=== PATIENT | male | born 1960 | race Caucasian/White ===

== ENCOUNTER 2021-02-23 14:11 | Inpatient (IN) | payer MEDICARE ==
[2021-02-23] MEDS ORDERED: Ibuprofen 600 MG Tab PO PRN (18:10)
[2021-02-23] MEDS: Zolpidem 5 MG Tab PO PRN (19:50)
[2021-02-23] MEDS: LORazepam 1 MG Tab PO PRN (20:56)
[2021-02-24] MEDS: Zolpidem 5 MG Tab PO PRN (00:33)
[2021-02-24] MEDS ORDERED: Haloperidol Lactate 5 MG/ML SDV IM STA (01:17)
[2021-02-24] MEDS ORDERED: Haloperidol Lactate 5 MG/ML SDV ONE (01:57)
[2021-02-24] MEDS: Acetaminophen/oxyCODONE 325-5 MG Tab PO PRN ×2 (03:00→16:42)
[2021-02-24] MEDS: Bacitracin Oint 1 GM U/D Packet TOP SCH (16:42)
[2021-02-25] MEDS: Acetaminophen/oxyCODONE 325-5 MG Tab PO PRN ×3 (01:20→20:39)
[2021-02-25] MEDS ORDERED: REMDESIVIR 200 MG in Sodium Chloride 0.9% 250 ML IV SCH (11:00)
[2021-02-25] MEDS: Enoxaparin 30 MG/0.3 ML Syringe SUBCUT SCH ×2 (12:37→23:24)
[2021-02-25] MEDS: Bacitracin Oint 1 GM U/D Packet TOP SCH (12:38)
[2021-02-25] MEDS: Dexamethasone 4 MG/ML SDV IVPUSH SCH (12:38)
[2021-02-25] MEDS ORDERED: BACITRACIN ZINC TOP SCH (13:15)
[2021-02-25] MEDS: Zolpidem 5 MG Tab PO PRN (20:37)
[2021-02-26] MEDS: Acetaminophen/oxyCODONE 325-5 MG Tab PO PRN ×4 (02:22→22:44)
[2021-02-26] MEDS: Dexamethasone 4 MG/ML SDV IVPUSH SCH (09:19)
[2021-02-26] MEDS: Enoxaparin 30 MG/0.3 ML Syringe SUBCUT SCH ×2 (09:19→22:43)
[2021-02-26] MEDS: REMDESIVIR 100 MG in Sodium Chloride 0.9% 100 ML IV SCH (09:20)
[2021-02-26] MEDS: Zolpidem 5 MG Tab PO PRN (22:44)
[2021-02-27] MEDS: Acetaminophen/oxyCODONE 325-5 MG Tab PO PRN ×4 (05:14→23:11)
[2021-02-27] MEDS: Dexamethasone 4 MG/ML SDV IVPUSH SCH (07:47)
[2021-02-27] MEDS: REMDESIVIR 100 MG in Sodium Chloride 0.9% 100 ML IV SCH (08:37)
[2021-02-27] MEDS: Enoxaparin 30 MG/0.3 ML Syringe SUBCUT SCH ×2 (09:43→21:21)
[2021-02-27] MEDS: Sodium Chloride 0.9% 10 ML Syringe FLUSH PRN ×2 (09:45→20:53)
[2021-02-27] MEDS ORDERED: Bisacodyl 10 MG Supp ONE (12:48)
[2021-02-27] MEDS ORDERED: Docusate Sodium 100 MG Cap ONE (12:50)
[2021-02-27] MEDS ORDERED: Bisacodyl 10 MG Supp RECTAL ONE (12:54)
[2021-02-27] MEDS ORDERED: Melatonin 3 MG Tab ONE (20:46)
[2021-02-27] MEDS: Melatonin 3 MG Tab PO PRN (20:53)
[2021-02-27] MEDS: Zolpidem 5 MG Tab PO PRN (23:12)
[2021-02-28] MEDS: Acetaminophen/oxyCODONE 325-5 MG Tab PO PRN ×3 (06:32→19:01)
[2021-02-28] MEDS: REMDESIVIR 100 MG in Sodium Chloride 0.9% 100 ML IV SCH (08:30)
[2021-02-28] MEDS: Docusate Sodium 100 MG Cap PO SCH (08:30)
[2021-02-28] MEDS: Dexamethasone 4 MG/ML SDV IVPUSH SCH (08:39)
[2021-02-28] MEDS: Enoxaparin 30 MG/0.3 ML Syringe SUBCUT SCH ×2 (09:47→22:26)
[2021-02-28] MEDS: LORazepam 1 MG Tab PO PRN (13:22)
[2021-02-28] MEDS ORDERED: diphenhydrAMINE 50 MG Cap PO PRN (20:00)
[2021-02-28] MEDS ORDERED: Haloperidol 1 MG Tab ONE ×2 (20:37→22:15)
[2021-02-28] MEDS ORDERED: Haloperidol 1 MG Tab PO SCH (22:30)
[2021-03-01] MEDS: Zolpidem 5 MG Tab PO PRN
[2021-03-01] MEDS: Acetaminophen/oxyCODONE 325-5 MG Tab PO PRN ×5 (01:08→23:10)
[2021-03-01] MEDS ORDERED: traZODone 50 MG Tab PO ONE (06:43)
[2021-03-01] MEDS: Docusate Sodium 100 MG Cap PO SCH (08:50)
[2021-03-01] MEDS: Dexamethasone 4 MG/ML SDV IVPUSH SCH (08:57)
[2021-03-01] MEDS: REMDESIVIR 100 MG in Sodium Chloride 0.9% 100 ML IV SCH (08:57)
[2021-03-01] MEDS: Enoxaparin 30 MG/0.3 ML Syringe SUBCUT SCH ×2 (10:06→22:59)
[2021-03-01] MEDS ORDERED: Haloperidol 1 MG Tab PO PRN (18:12)
[2021-03-01] MEDS ORDERED: Haloperidol 1 MG Tab PO SCH (20:00)
[2021-03-01] MEDS: Melatonin 3 MG Tab PO PRN (23:00)
[2021-03-01] MEDS: traZODone 100 MG Tab PO PRN (23:00)
[2021-03-02] MEDS: Acetaminophen/oxyCODONE 325-5 MG Tab PO PRN ×5 (04:30→22:02)
[2021-03-02] MEDS: Dexamethasone 4 MG/ML SDV IVPUSH SCH (07:53)
[2021-03-02] MEDS: Docusate Sodium 100 MG Cap PO SCH (08:21)
[2021-03-02] MEDS: Enoxaparin 30 MG/0.3 ML Syringe SUBCUT SCH ×2 (10:53→22:00)
[2021-03-02] MEDS: traZODone 100 MG Tab PO PRN (22:01)
[2021-03-02] MEDS: Melatonin 3 MG Tab PO PRN (22:02)
[2021-03-03] MEDS: Acetaminophen/oxyCODONE 325-5 MG Tab PO PRN ×3 (04:01→22:17)
[2021-03-03] MEDS: Docusate Sodium 100 MG Cap PO SCH (09:21)
[2021-03-03] MEDS: Dexamethasone 4 MG Tab PO SCH (09:24)
[2021-03-03] MEDS: Enoxaparin 30 MG/0.3 ML Syringe SUBCUT SCH ×2 (10:45→22:16)
[2021-03-03] MEDS: Dexamethasone 4 MG/ML SDV IVPUSH SCH (10:45)
[2021-03-03] MEDS: LORazepam 1 MG Tab PO PRN (18:30)
[2021-03-03] MEDS: Melatonin 3 MG Tab PO PRN (22:18)
[2021-03-03] MEDS: Sodium Chloride 0.9% 10 ML Syringe FLUSH PRN (22:19)
[2021-03-03] MEDS: traZODone 100 MG Tab PO PRN (22:19)
[2021-03-04] MEDS: Acetaminophen/oxyCODONE 325-5 MG Tab PO PRN ×4 (02:20→22:05)
[2021-03-04] MEDS: Dexamethasone 4 MG Tab PO SCH (09:44)
[2021-03-04] MEDS: Docusate Sodium 100 MG Cap PO SCH (09:45)
[2021-03-04] MEDS: Enoxaparin 30 MG/0.3 ML Syringe SUBCUT SCH ×2 (11:17→22:04)
[2021-03-04] MEDS: LORazepam 1 MG Tab PO PRN ×2 (15:15→22:04)
[2021-03-04] MEDS: Melatonin 3 MG Tab PO PRN (22:05)
[2021-03-05] MEDS: Docusate Sodium 100 MG Cap PO SCH (08:03)
[2021-03-05] MEDS: Dexamethasone 4 MG Tab PO SCH (08:03)
[2021-03-05] MEDS: Acetaminophen/oxyCODONE 325-5 MG Tab PO PRN ×2 (08:07→13:39)
[2021-03-05] MEDS: Enoxaparin 30 MG/0.3 ML Syringe SUBCUT SCH (10:34)
== END 2021-03-05 12:55 | disposition swing bed (61) | DRG 922 ==
LOC: LB.ED 14:11 → UNDOADMIN 16:35 → LB.MS 16:35 → UNDODISIN 03-05 12:55
PROVIDERS: ADMIT Nurse Practitioner; ATTEND Nurse Practitioner
PROC: 8E0ZXY6 Isolation (ICD-10-PCS; principal; 2021-02-25)
PROC: XW033E5 Introduction of Remdesivir Anti-infective into Peripheral Vein, Percutaneous Approach, New Technology Group 5 (ICD-10-PCS; 2021-02-25)
PROC: 3E0DX3Z Introduction of Anti-inflammatory into Mouth and Pharynx, External Approach (ICD-10-PCS; 2021-03-03)
DX: T33.522A Superficial frostbite of left hand, initial encounter (principal); T33.521A Superficial frostbite of right hand, initial encounter; T69.8XXA Other specified effects of reduced temperature, initial encounter; T34.532A Frostbite with tissue necrosis of left finger(s), initial encounter; U07.1 COVID-19; Z20.822 Contact with and (suspected) exposure to COVID-19; T33.72XA Superficial frostbite of left knee and lower leg, initial encounter; T33.71XA Superficial frostbite of right knee and lower leg, initial encounter; T34.531A Frostbite with tissue necrosis of right finger(s), initial encounter; R29.810 Facial weakness; R41.3 Other amnesia; Z87.820 Personal history of traumatic brain injury; X31.XXXA Exposure to excessive natural cold, initial encounter
CPT/HCPCS: 36415; 80048; 85025; 99284; U0002; 80076; 96125-GN; 97163-GP; 97597-GP; 97598-GP; 99221; 99232; 99233; A9270-GY; J1100; J1630; J1650; J7050; J8540

== ENCOUNTER 2021-03-05 12:56 | Inpatient (IN) | payer MEDICARE ==
[2021-03-05] MEDS ORDERED: Tuberculin, PPD 5 Units/0.1 ML 1 ML MDV IDERM ONE (15:19)
[2021-03-05] MEDS: Acetaminophen/oxyCODONE 325-5 MG Tab PO PRN ×2 (17:15→21:29)
[2021-03-05] MEDS: traZODone 100 MG Tab PO SCH (20:25)
[2021-03-06] MEDS: Acetaminophen/oxyCODONE 325-5 MG Tab PO PRN ×5 (01:40→20:57)
[2021-03-06] MEDS: Docusate Sodium 100 MG Cap PO SCH (08:44)
[2021-03-06] MEDS: Lisinopril 10 MG Tab PO SCH (10:08)
[2021-03-06] MEDS: traZODone 100 MG Tab PO SCH (20:55)
[2021-03-07] MEDS: Docusate Sodium 100 MG Cap PO SCH (07:12)
[2021-03-07] MEDS: Acetaminophen/oxyCODONE 325-5 MG Tab PO PRN ×2 (07:15→17:07)
[2021-03-07] MEDS: Lisinopril 10 MG Tab PO SCH (08:35)
[2021-03-07] MEDS: traZODone 100 MG Tab PO SCH (19:31)
[2021-03-08] MEDS: Docusate Sodium 100 MG Cap PO SCH (08:30)
[2021-03-08] MEDS: Lisinopril 10 MG Tab PO SCH (08:30)
[2021-03-08] MEDS ORDERED: Lisinopril 10 MG Tab ONE (10:27)
[2021-03-08] MEDS ORDERED: Lisinopril 10 MG Tab PO ONE (10:27)
[2021-03-08] MEDS: Acetaminophen/oxyCODONE 325-5 MG Tab PO PRN ×3 (12:30→20:47)
[2021-03-08] MEDS: traZODone 100 MG Tab PO SCH (20:47)
[2021-03-09] MEDS: Docusate Sodium 100 MG Cap PO SCH (07:06)
[2021-03-09] MEDS: Lisinopril 20 MG Tab PO SCH (07:06)
[2021-03-09] MEDS: Acetaminophen/oxyCODONE 325-5 MG Tab PO PRN ×3 (07:07→23:58)
[2021-03-09] MEDS: traZODone 100 MG Tab PO SCH (19:29)
[2021-03-10] MEDS: Lisinopril 20 MG Tab PO SCH (08:03)
[2021-03-10] MEDS: Docusate Sodium 100 MG Cap PO SCH (08:03)
[2021-03-10] MEDS: Acetaminophen/oxyCODONE 325-5 MG Tab PO PRN ×2 (09:01→19:22)
[2021-03-10] MEDS: traZODone 100 MG Tab PO SCH (19:22)
[2021-03-11] MEDS: Lisinopril 20 MG Tab PO SCH (08:24)
[2021-03-11] MEDS: Docusate Sodium 100 MG Cap PO SCH (08:24)
[2021-03-11] MEDS: Acetaminophen/oxyCODONE 325-5 MG Tab PO PRN ×2 (13:48→21:50)
[2021-03-11] MEDS: traZODone 100 MG Tab PO SCH (21:50)
[2021-03-12] MEDS: Lisinopril 20 MG Tab PO SCH (07:55)
[2021-03-12] MEDS: Docusate Sodium 100 MG Cap PO SCH (07:56)
[2021-03-12] MEDS: amLODIPine 5 MG Tab PO SCH (08:00)
[2021-03-12] MEDS ORDERED: amLODIPine 10 MG Tab ONE (08:17)
[2021-03-12] MEDS: traZODone 100 MG Tab PO SCH (20:55)
[2021-03-12] MEDS: Acetaminophen/oxyCODONE 325-5 MG Tab PO PRN (21:54)
[2021-03-13] MEDS: amLODIPine 5 MG Tab PO SCH (06:33)
[2021-03-13] MEDS: Lisinopril 20 MG Tab PO SCH (06:34)
[2021-03-13] MEDS: Acetaminophen/oxyCODONE 325-5 MG Tab PO PRN (06:34)
== END 2021-03-13 06:20 | DRG 950 ==
LOC: LB.MS 13:00
PROVIDERS: ADMIT Physician Assistant; ATTEND Physician Assistant
DX: T33.522D Superficial frostbite of left hand, subsequent encounter (principal); T33.521D Superficial frostbite of right hand, subsequent encounter; I10 Essential (primary) hypertension; Z20.822 Contact with and (suspected) exposure to COVID-19; Z79.899 Other long term (current) drug therapy; Z87.820 Personal history of traumatic brain injury
CPT/HCPCS: 36415; 80048; 85025; 86580; 87070; 87077; 87186; 87205; 93005; 97597-GP; A9270-GY

== ENCOUNTER 2021-03-13 17:45 | Inpatient (IN) | payer MEDICARE ==
[2021-03-13] MEDS: Cephalexin 500 MG Cap PO SCH (21:27)
[2021-03-13] MEDS: traZODone 100 MG Tab PO SCH (21:27)
[2021-03-13] MEDS: Melatonin 3 MG Tab PO SCH (21:27)
[2021-03-13] MEDS: Acetaminophen/oxyCODONE 325-5 MG Tab PO PRN (21:27)
[2021-03-14] MEDS: Acetaminophen/oxyCODONE 325-5 MG Tab PO PRN ×3 (04:26→21:27)
[2021-03-14] MEDS: Docusate Sodium 100 MG Cap PO SCH (08:37)
[2021-03-14] MEDS: amLODIPine 10 MG Tab PO SCH (08:38)
[2021-03-14] MEDS: Lisinopril 20 MG Tab PO SCH (08:38)
[2021-03-14] MEDS: Cephalexin 500 MG Cap PO SCH ×4 (08:38→21:26)
[2021-03-14] MEDS ORDERED: Bisacodyl 10 MG Supp RECTAL ONE (11:43)
[2021-03-14] MEDS ORDERED: Sodium Phosphate,Monobasic/Sodium Phosphate,Dibasic Enema 133 ML Bottle RECTAL ONE (16:02)
[2021-03-14] MEDS: traZODone 100 MG Tab PO SCH (21:26)
[2021-03-14] MEDS: Melatonin 3 MG Tab PO SCH (21:26)
[2021-03-15] MEDS: Docusate Sodium 100 MG Cap PO SCH (07:23)
[2021-03-15] MEDS: Cephalexin 500 MG Cap PO SCH ×4 (07:23→21:03)
[2021-03-15] MEDS: Acetaminophen/oxyCODONE 325-5 MG Tab PO PRN ×3 (07:46→21:02)
[2021-03-15] MEDS: amLODIPine 10 MG Tab PO SCH (08:12)
[2021-03-15] MEDS: Lisinopril 20 MG Tab PO SCH (08:13)
[2021-03-15] MEDS: Melatonin 3 MG Tab PO SCH (21:02)
[2021-03-15] MEDS: traZODone 100 MG Tab PO SCH (21:03)
[2021-03-16] MEDS: Docusate Sodium 100 MG Cap PO SCH (09:25)
[2021-03-16] MEDS: amLODIPine 10 MG Tab PO SCH (09:25)
[2021-03-16] MEDS: Lisinopril 20 MG Tab PO SCH (09:26)
[2021-03-16] MEDS: Cephalexin 500 MG Cap PO SCH ×4 (09:26→19:59)
[2021-03-16] MEDS: Acetaminophen/oxyCODONE 325-5 MG Tab PO PRN (16:26)
[2021-03-16] MEDS ORDERED: Cephalexin 500 MG Cap ONE (16:26)
[2021-03-16] MEDS: Melatonin 3 MG Tab PO SCH (19:59)
[2021-03-16] MEDS: traZODone 100 MG Tab PO SCH (19:59)
[2021-03-17] MEDS: Acetaminophen/oxyCODONE 325-5 MG Tab PO PRN ×2 (07:45→19:40)
[2021-03-17] MEDS: Docusate Sodium 100 MG Cap PO SCH (07:45)
[2021-03-17] MEDS: Cephalexin 500 MG Cap PO SCH ×2 (07:45→12:00)
[2021-03-17] MEDS: amLODIPine 10 MG Tab PO SCH (07:48)
[2021-03-17] MEDS: Lisinopril 20 MG Tab PO SCH (07:48)
[2021-03-17] MEDS: Melatonin 3 MG Tab PO SCH (19:39)
[2021-03-17] MEDS: Ciprofloxacin 500 MG Tab PO SCH (19:40)
[2021-03-17] MEDS: traZODone 100 MG Tab PO SCH (19:40)
[2021-03-18] MEDS ORDERED: Lisinopril 20 MG Tab ONE (07:27)
[2021-03-18] MEDS: Ciprofloxacin 500 MG Tab PO SCH ×2 (08:04→19:49)
[2021-03-18] MEDS: Docusate Sodium 100 MG Cap PO SCH (08:04)
[2021-03-18] MEDS: amLODIPine 10 MG Tab PO SCH (08:07)
[2021-03-18] MEDS: Acetaminophen/oxyCODONE 325-5 MG Tab PO PRN ×2 (12:00→20:05)
[2021-03-18] MEDS: Melatonin 3 MG Tab PO SCH (19:49)
[2021-03-18] MEDS: traZODone 100 MG Tab PO SCH (19:49)
[2021-03-19] MEDS ORDERED: Lisinopril 20 MG Tab ONE (08:00)
[2021-03-19] MEDS: Ciprofloxacin 500 MG Tab PO SCH ×2 (08:02→19:22)
[2021-03-19] MEDS: amLODIPine 10 MG Tab PO SCH (08:02)
[2021-03-19] MEDS: Docusate Sodium 100 MG Cap PO SCH (08:03)
[2021-03-19] MEDS: Acetaminophen/oxyCODONE 325-5 MG Tab PO PRN ×3 (08:05→20:38)
[2021-03-19] MEDS: Melatonin 3 MG Tab PO SCH (19:22)
[2021-03-19] MEDS: traZODone 100 MG Tab PO SCH (19:22)
[2021-03-20] MEDS ORDERED: Lisinopril 20 MG Tab ONE (07:10)
[2021-03-20] MEDS: Docusate Sodium 100 MG Cap PO SCH (07:11)
[2021-03-20] MEDS: Ciprofloxacin 500 MG Tab PO SCH ×2 (07:11→19:47)
[2021-03-20] MEDS: amLODIPine 10 MG Tab PO SCH (07:13)
[2021-03-20] MEDS: Acetaminophen/oxyCODONE 325-5 MG Tab PO PRN ×2 (07:15→19:46)
[2021-03-20] MEDS: Melatonin 3 MG Tab PO SCH (19:47)
[2021-03-20] MEDS: traZODone 100 MG Tab PO SCH (19:47)
[2021-03-21] MEDS ORDERED: Lisinopril 20 MG Tab ONE (07:56)
[2021-03-21] MEDS: amLODIPine 10 MG Tab PO SCH (08:01)
[2021-03-21] MEDS: Ciprofloxacin 500 MG Tab PO SCH ×2 (08:01→20:37)
[2021-03-21] MEDS: Docusate Sodium 100 MG Cap PO SCH (08:01)
[2021-03-21] MEDS: traZODone 100 MG Tab PO SCH (20:37)
[2021-03-21] MEDS: Melatonin 3 MG Tab PO SCH (20:37)
[2021-03-21] MEDS: Acetaminophen/oxyCODONE 325-5 MG Tab PO PRN (21:14)
[2021-03-22] MEDS ORDERED: Lisinopril 20 MG Tab ONE (07:53)
[2021-03-22] MEDS: Ciprofloxacin 500 MG Tab PO SCH ×2 (07:54→19:52)
[2021-03-22] MEDS: Docusate Sodium 100 MG Cap PO SCH ×2 (07:54→19:53)
[2021-03-22] MEDS: amLODIPine 10 MG Tab PO SCH (07:54)
[2021-03-22] MEDS: Acetaminophen/oxyCODONE 325-5 MG Tab PO PRN ×3 (07:57→19:54)
[2021-03-22] MEDS: Polyethylene Glycol 3350 Powder 17 GM Packet PO SCH (09:23)
[2021-03-22] MEDS ORDERED: Glycerin Adult 2 GM Supp RECTAL ONE (15:33)
[2021-03-22] MEDS: traZODone 100 MG Tab PO SCH (19:52)
[2021-03-22] MEDS: Melatonin 3 MG Tab PO SCH (19:52)
[2021-03-23] MEDS ORDERED: Lisinopril 20 MG Tab ONE (07:53)
[2021-03-23] MEDS: Acetaminophen/oxyCODONE 325-5 MG Tab PO PRN ×2 (07:57→15:24)
[2021-03-23] MEDS: Ciprofloxacin 500 MG Tab PO SCH ×2 (07:57→20:29)
[2021-03-23] MEDS: Docusate Sodium 100 MG Cap PO SCH ×2 (07:57→20:29)
[2021-03-23] MEDS: Polyethylene Glycol 3350 Powder 17 GM Packet PO SCH ×2 (07:57→20:29)
[2021-03-23] MEDS: amLODIPine 10 MG Tab PO SCH (07:59)
[2021-03-23] MEDS: Melatonin 3 MG Tab PO SCH (20:29)
[2021-03-23] MEDS: traZODone 100 MG Tab PO SCH (20:30)
[2021-03-24] MEDS: Acetaminophen/oxyCODONE 325-5 MG Tab PO PRN ×3 (08:04→19:54)
[2021-03-24] MEDS: Docusate Sodium 100 MG Cap PO SCH ×2 (08:04→19:56)
[2021-03-24] MEDS: amLODIPine 10 MG Tab PO SCH (08:04)
[2021-03-24] MEDS: Lisinopril 20 MG Tab PO SCH (08:04)
[2021-03-24] MEDS: Ciprofloxacin 500 MG Tab PO SCH ×2 (08:04→19:55)
[2021-03-24] MEDS: Polyethylene Glycol 3350 Powder 17 GM Packet PO SCH ×2 (08:04→19:54)
[2021-03-24] MEDS: Melatonin 3 MG Tab PO SCH (19:54)
[2021-03-24] MEDS: traZODone 100 MG Tab PO SCH (19:55)
[2021-03-25] MEDS: Lisinopril 20 MG Tab PO SCH (07:56)
[2021-03-25] MEDS: Ciprofloxacin 500 MG Tab PO SCH ×2 (07:56→20:13)
[2021-03-25] MEDS: Polyethylene Glycol 3350 Powder 17 GM Packet PO SCH ×2 (08:00→20:13)
[2021-03-25] MEDS: Docusate Sodium 100 MG Cap PO SCH ×2 (08:00→20:13)
[2021-03-25] MEDS: amLODIPine 10 MG Tab PO SCH (08:00)
[2021-03-25] MEDS: traZODone 100 MG Tab PO SCH (20:13)
[2021-03-25] MEDS: Melatonin 3 MG Tab PO SCH (20:13)
[2021-03-25] MEDS: Acetaminophen/oxyCODONE 325-5 MG Tab PO PRN (20:14)
[2021-03-26] MEDS: Docusate Sodium 100 MG Cap PO SCH ×2 (07:39→20:18)
[2021-03-26] MEDS: Lisinopril 20 MG Tab PO SCH (07:39)
[2021-03-26] MEDS: Polyethylene Glycol 3350 Powder 17 GM Packet PO SCH ×2 (07:40→20:18)
[2021-03-26] MEDS: amLODIPine 10 MG Tab PO SCH (07:40)
[2021-03-26] MEDS: Ciprofloxacin 500 MG Tab PO SCH ×2 (07:40→20:18)
[2021-03-26] MEDS ORDERED: Polyethylene Glycol 3350 Powder 17 GM Packet ONE (07:42)
[2021-03-26] MEDS: Melatonin 3 MG Tab PO SCH (20:17)
[2021-03-26] MEDS: Acetaminophen/oxyCODONE 325-5 MG Tab PO PRN (20:18)
[2021-03-26] MEDS: traZODone 100 MG Tab PO SCH (20:18)
[2021-03-27] MEDS: Lisinopril 20 MG Tab PO SCH (07:54)
[2021-03-27] MEDS: amLODIPine 10 MG Tab PO SCH (07:54)
[2021-03-27] MEDS: Polyethylene Glycol 3350 Powder 17 GM Packet PO SCH ×2 (07:54→20:14)
[2021-03-27] MEDS: Acetaminophen/oxyCODONE 325-5 MG Tab PO PRN ×2 (07:54→20:13)
[2021-03-27] MEDS: Docusate Sodium 100 MG Cap PO SCH ×2 (07:54→20:14)
[2021-03-27] MEDS: Ciprofloxacin 500 MG Tab PO SCH ×2 (07:54→20:14)
[2021-03-27] MEDS: Melatonin 3 MG Tab PO SCH (20:13)
[2021-03-27] MEDS: traZODone 100 MG Tab PO SCH (20:14)
[2021-03-28] MEDS: amLODIPine 10 MG Tab PO SCH (07:19)
[2021-03-28] MEDS: Ciprofloxacin 500 MG Tab PO SCH ×2 (07:19→19:49)
[2021-03-28] MEDS: Docusate Sodium 100 MG Cap PO SCH ×2 (07:19→19:49)
[2021-03-28] MEDS: Lisinopril 20 MG Tab PO SCH (07:20)
[2021-03-28] MEDS: Polyethylene Glycol 3350 Powder 17 GM Packet PO SCH ×2 (07:20→19:49)
[2021-03-28] MEDS: traZODone 100 MG Tab PO SCH (19:49)
[2021-03-28] MEDS: Acetaminophen/oxyCODONE 325-5 MG Tab PO PRN (19:49)
[2021-03-28] MEDS: Melatonin 3 MG Tab PO SCH (19:50)
[2021-03-29] MEDS: Lisinopril 20 MG Tab PO SCH (08:24)
[2021-03-29] MEDS: Polyethylene Glycol 3350 Powder 17 GM Packet PO SCH ×2 (08:24→19:56)
[2021-03-29] MEDS: Docusate Sodium 100 MG Cap PO SCH ×2 (08:25→19:57)
[2021-03-29] MEDS: Ciprofloxacin 500 MG Tab PO SCH ×2 (08:25→19:56)
[2021-03-29] MEDS: amLODIPine 10 MG Tab PO SCH (08:25)
[2021-03-29] MEDS: Acetaminophen/oxyCODONE 325-5 MG Tab PO PRN ×2 (10:14→19:56)
[2021-03-29] MEDS: Melatonin 3 MG Tab PO SCH (19:56)
[2021-03-29] MEDS: traZODone 100 MG Tab PO SCH (19:56)
[2021-03-30] MEDS: Lisinopril 20 MG Tab PO SCH (08:20)
[2021-03-30] MEDS: Ciprofloxacin 500 MG Tab PO SCH (08:20)
[2021-03-30] MEDS: amLODIPine 10 MG Tab PO SCH (08:20)
[2021-03-30] MEDS: Polyethylene Glycol 3350 Powder 17 GM Packet PO SCH (08:20)
[2021-03-30] MEDS: Docusate Sodium 100 MG Cap PO SCH (08:21)
[2021-03-30] MEDS: Acetaminophen/oxyCODONE 325-5 MG Tab PO PRN ×2 (12:19→19:38)
[2021-03-30] MEDS: traZODone 100 MG Tab PO SCH (19:38)
[2021-03-30] MEDS: Melatonin 3 MG Tab PO SCH (19:38)
[2021-03-31] MEDS: amLODIPine 10 MG Tab PO SCH (08:58)
[2021-03-31] MEDS: Lisinopril 20 MG Tab PO SCH (08:58)
[2021-03-31] MEDS: Acetaminophen/oxyCODONE 325-5 MG Tab PO PRN ×3 (08:58→20:40)
[2021-03-31] MEDS: Melatonin 3 MG Tab PO SCH (19:20)
[2021-03-31] MEDS: traZODone 100 MG Tab PO SCH (19:20)
[2021-04-01] MEDS: amLODIPine 10 MG Tab PO SCH (07:39)
[2021-04-01] MEDS: Lisinopril 20 MG Tab PO SCH (07:40)
[2021-04-01] MEDS: Acetaminophen/oxyCODONE 325-5 MG Tab PO PRN (19:21)
[2021-04-01] MEDS: Melatonin 3 MG Tab PO SCH (19:21)
[2021-04-01] MEDS: traZODone 100 MG Tab PO SCH (19:22)
[2021-04-02] MEDS: Lisinopril 20 MG Tab PO SCH (07:54)
[2021-04-02] MEDS: amLODIPine 10 MG Tab PO SCH (07:54)
[2021-04-02] MEDS: Melatonin 3 MG Tab PO SCH (19:30)
[2021-04-02] MEDS: traZODone 100 MG Tab PO SCH (19:30)
[2021-04-02] MEDS: Acetaminophen/oxyCODONE 325-5 MG Tab PO PRN (19:31)
[2021-04-03] MEDS: Lisinopril 20 MG Tab PO SCH (08:13)
[2021-04-03] MEDS: amLODIPine 10 MG Tab PO SCH (08:13)
[2021-04-03] MEDS: Acetaminophen/oxyCODONE 325-5 MG Tab PO PRN (20:39)
[2021-04-03] MEDS: traZODone 100 MG Tab PO SCH (20:39)
[2021-04-03] MEDS: Melatonin 3 MG Tab PO SCH (20:39)
[2021-04-04] MEDS: amLODIPine 10 MG Tab PO SCH (07:44)
[2021-04-04] MEDS: Lisinopril 20 MG Tab PO SCH (07:44)
[2021-04-04] MEDS: Acetaminophen/oxyCODONE 325-5 MG Tab PO PRN ×2 (07:44→16:29)
[2021-04-04] MEDS: traZODone 100 MG Tab PO SCH (19:52)
[2021-04-04] MEDS: Melatonin 3 MG Tab PO SCH (19:53)
[2021-04-05] MEDS: Acetaminophen/oxyCODONE 325-5 MG Tab PO PRN ×2 (00:13→18:06)
[2021-04-05] MEDS: amLODIPine 10 MG Tab PO SCH (12:08)
[2021-04-05] MEDS: Lisinopril 20 MG Tab PO SCH (12:08)
[2021-04-05] MEDS: traZODone 100 MG Tab PO SCH (19:52)
[2021-04-05] MEDS: Melatonin 3 MG Tab PO SCH (19:52)
[2021-04-06] MEDS: Acetaminophen/oxyCODONE 325-5 MG Tab PO PRN (01:45)
== END 2021-04-06 04:50 | disposition home or self-care (01) | DRG 950 ==
LOC: LB.MS 17:45
PROVIDERS: ADMIT Physician Assistant; ATTEND Physician Assistant
DX: T33.532D Superficial frostbite of left finger(s), subsequent encounter (principal); T34.531D Frostbite with tissue necrosis of right finger(s), subsequent encounter; K40.90 Unilateral inguinal hernia, without obstruction or gangrene, not specified as recurrent; K59.00 Constipation, unspecified; D72.829 Elevated white blood cell count, unspecified; I10 Essential (primary) hypertension; Z20.822 Contact with and (suspected) exposure to COVID-19; Z79.899 Other long term (current) drug therapy; Z89.022 Acquired absence of left finger(s); Z86.16 Personal history of COVID-19
CPT/HCPCS: 36415; 74019; 85025; 97161-GP; 97164-GP; 97597-GP; A9270-GY

== ENCOUNTER 2021-04-06 12:06 | Inpatient (IN) | payer MEDICARE ==
[2021-04-06] MEDS ORDERED: LORazepam 1 MG Tab PO ONE (15:34)
[2021-04-06] MEDS ORDERED: Acetaminophen/oxyCODONE 325-5 MG Tab PO SCH (19:00)
[2021-04-06] MEDS: Cephalexin 500 MG Cap PO SCH (19:27)
[2021-04-06] MEDS: traZODone 100 MG Tab PO SCH (19:28)
[2021-04-06] MEDS: Acetaminophen/oxyCODONE 325-5 MG Tab PO PRN (19:28)
[2021-04-06] MEDS: Melatonin 3 MG Tab PO SCH (19:28)
[2021-04-07] MEDS: Acetaminophen/oxyCODONE 325-5 MG Tab PO PRN ×2 (03:34→19:32)
[2021-04-07] MEDS: Cephalexin 500 MG Cap PO SCH ×4 (08:41→21:00)
[2021-04-07] MEDS: amLODIPine 10 MG Tab PO SCH (08:42)
[2021-04-07] MEDS: Lisinopril 20 MG Tab PO SCH (08:42)
[2021-04-07] MEDS: Melatonin 3 MG Tab PO SCH (19:31)
[2021-04-07] MEDS: traZODone 100 MG Tab PO SCH (19:32)
[2021-04-08] MEDS: Acetaminophen/oxyCODONE 325-5 MG Tab PO PRN ×2 (08:10→20:05)
[2021-04-08] MEDS: Cephalexin 500 MG Cap PO SCH ×4 (08:10→20:04)
[2021-04-08] MEDS: Lisinopril 20 MG Tab PO SCH (08:11)
[2021-04-08] MEDS: amLODIPine 10 MG Tab PO SCH (08:11)
[2021-04-08] MEDS: traZODone 100 MG Tab PO SCH (20:04)
[2021-04-08] MEDS: Melatonin 3 MG Tab PO SCH (20:04)
[2021-04-09] MEDS: Cephalexin 500 MG Cap PO SCH (07:31)
[2021-04-09] MEDS: amLODIPine 10 MG Tab PO SCH (07:35)
[2021-04-09] MEDS: Lisinopril 20 MG Tab PO SCH (08:47)
[2021-04-09] MEDS: Doxycycline 100 MG Cap PO SCH ×2 (10:21→21:59)
[2021-04-09] MEDS: Acetaminophen/oxyCODONE 325-5 MG Tab PO PRN ×2 (16:41→21:59)
[2021-04-09] MEDS: Melatonin 3 MG Tab PO SCH (20:32)
[2021-04-09] MEDS: traZODone 100 MG Tab PO SCH (20:34)
[2021-04-10] MEDS: Doxycycline 100 MG Cap PO SCH ×3 (07:33→21:45)
[2021-04-10] MEDS: Lisinopril 20 MG Tab PO SCH (07:33)
[2021-04-10] MEDS: amLODIPine 10 MG Tab PO SCH (07:33)
[2021-04-10] MEDS: Acetaminophen/oxyCODONE 325-5 MG Tab PO PRN ×2 (07:34→21:45)
[2021-04-10] MEDS: Melatonin 3 MG Tab PO SCH (21:45)
[2021-04-10] MEDS: traZODone 100 MG Tab PO SCH (21:45)
[2021-04-11] MEDS: amLODIPine 10 MG Tab PO SCH (07:28)
[2021-04-11] MEDS: Acetaminophen/oxyCODONE 325-5 MG Tab PO PRN ×2 (07:29→16:00)
[2021-04-11] MEDS: Lisinopril 20 MG Tab PO SCH (07:29)
[2021-04-11] MEDS: Doxycycline 100 MG Cap PO SCH ×2 (09:54→21:16)
[2021-04-11] MEDS: Melatonin 3 MG Tab PO SCH (20:02)
[2021-04-11] MEDS: traZODone 100 MG Tab PO SCH (20:03)
[2021-04-12] MEDS: Doxycycline 100 MG Cap PO SCH ×2 (10:01→22:10)
[2021-04-12] MEDS: Lisinopril 20 MG Tab PO SCH (10:01)
[2021-04-12] MEDS: Acetaminophen/oxyCODONE 325-5 MG Tab PO PRN ×2 (10:02→20:19)
[2021-04-12] MEDS: amLODIPine 10 MG Tab PO SCH (10:02)
[2021-04-12] MEDS: traZODone 100 MG Tab PO SCH (20:19)
[2021-04-12] MEDS: Melatonin 3 MG Tab PO SCH (20:20)
[2021-04-13] MEDS: amLODIPine 10 MG Tab PO SCH (09:00)
[2021-04-13] MEDS: Lisinopril 20 MG Tab PO SCH (09:00)
[2021-04-13] MEDS: Doxycycline 100 MG Cap PO SCH ×2 (16:03→21:20)
[2021-04-13] MEDS: Melatonin 3 MG Tab PO SCH (20:20)
[2021-04-13] MEDS: Acetaminophen/oxyCODONE 325-5 MG Tab PO PRN (20:20)
[2021-04-13] MEDS: traZODone 100 MG Tab PO SCH (20:20)
[2021-04-14] MEDS ORDERED: Lisinopril 20 MG Tab ONE (07:12)
[2021-04-14] MEDS: amLODIPine 10 MG Tab PO SCH (07:18)
[2021-04-14] MEDS: Lisinopril 20 MG Tab PO SCH (07:18)
[2021-04-14] MEDS: Doxycycline 100 MG Cap PO SCH ×3 (10:00→22:00)
[2021-04-14] MEDS: traZODone 100 MG Tab PO SCH (20:16)
[2021-04-14] MEDS: Melatonin 3 MG Tab PO SCH (20:16)
[2021-04-14] MEDS: Acetaminophen/oxyCODONE 325-5 MG Tab PO PRN (20:17)
[2021-04-15] MEDS: amLODIPine 10 MG Tab PO SCH (07:42)
[2021-04-15] MEDS: Acetaminophen/oxyCODONE 325-5 MG Tab PO PRN ×3 (07:43→20:13)
[2021-04-15] MEDS: Lisinopril 20 MG Tab PO SCH (07:43)
[2021-04-15] MEDS: Doxycycline 100 MG Cap PO SCH ×3 (09:41→21:50)
[2021-04-15] MEDS: Melatonin 3 MG Tab PO SCH (20:13)
[2021-04-15] MEDS: traZODone 100 MG Tab PO SCH (20:13)
[2021-04-16] MEDS: Acetaminophen/oxyCODONE 325-5 MG Tab PO PRN ×2 (07:18→20:38)
[2021-04-16] MEDS: Lisinopril 20 MG Tab PO SCH (07:27)
[2021-04-16] MEDS: amLODIPine 10 MG Tab PO SCH (07:27)
[2021-04-16] MEDS: Doxycycline 100 MG Cap PO SCH ×2 (09:59→22:20)
[2021-04-16] MEDS: Melatonin 3 MG Tab PO SCH (20:37)
[2021-04-16] MEDS: traZODone 100 MG Tab PO SCH (20:38)
[2021-04-17] MEDS: Acetaminophen/oxyCODONE 325-5 MG Tab PO PRN ×2 (07:19→19:19)
[2021-04-17] MEDS: amLODIPine 10 MG Tab PO SCH (07:23)
[2021-04-17] MEDS: Lisinopril 20 MG Tab PO SCH (07:24)
[2021-04-17] MEDS: Doxycycline 100 MG Cap PO SCH ×2 (10:43→21:08)
[2021-04-17] MEDS: traZODone 100 MG Tab PO SCH (19:19)
[2021-04-17] MEDS: Sertraline 50 MG Tab PO SCH (19:19)
[2021-04-17] MEDS: Melatonin 3 MG Tab PO SCH (19:19)
[2021-04-18] MEDS: Acetaminophen/oxyCODONE 325-5 MG Tab PO PRN ×2 (07:20→19:21)
[2021-04-18] MEDS: amLODIPine 10 MG Tab PO SCH (07:26)
[2021-04-18] MEDS: Lisinopril 20 MG Tab PO SCH (07:26)
[2021-04-18] MEDS: Doxycycline 100 MG Cap PO SCH ×2 (09:53→21:57)
[2021-04-18] MEDS: Sertraline 50 MG Tab PO SCH (19:21)
[2021-04-18] MEDS: Melatonin 3 MG Tab PO SCH (19:22)
[2021-04-18] MEDS: traZODone 100 MG Tab PO SCH (19:23)
[2021-04-19] MEDS: Lisinopril 20 MG Tab PO SCH (07:52)
[2021-04-19] MEDS: amLODIPine 10 MG Tab PO SCH (07:53)
[2021-04-19] MEDS: Acetaminophen/oxyCODONE 325-5 MG Tab PO PRN ×2 (07:54→19:33)
[2021-04-19] MEDS: Doxycycline 100 MG Cap PO SCH ×2 (19:12→22:05)
[2021-04-19] MEDS: traZODone 100 MG Tab PO SCH (19:33)
[2021-04-19] MEDS: Melatonin 3 MG Tab PO SCH (19:33)
[2021-04-19] MEDS: Sertraline 50 MG Tab PO SCH (19:34)
[2021-04-20] MEDS: amLODIPine 10 MG Tab PO SCH (08:28)
[2021-04-20] MEDS: Lisinopril 20 MG Tab PO SCH (08:28)
[2021-04-20] MEDS: Doxycycline 100 MG Cap PO SCH ×2 (09:09→21:45)
[2021-04-20] MEDS: Bacitracin Oint 1 GM U/D Packet TOP SCH (19:57)
[2021-04-20] MEDS: Sertraline 50 MG Tab PO SCH (19:58)
[2021-04-20] MEDS: Melatonin 3 MG Tab PO SCH (19:58)
[2021-04-20] MEDS: Acetaminophen/oxyCODONE 325-5 MG Tab PO PRN (19:58)
[2021-04-20] MEDS: traZODone 100 MG Tab PO SCH (19:59)
[2021-04-21] MEDS: amLODIPine 10 MG Tab PO SCH (08:16)
[2021-04-21] MEDS: Lisinopril 20 MG Tab PO SCH (08:16)
[2021-04-21] MEDS: Doxycycline 100 MG Cap PO SCH ×2 (09:08→21:18)
[2021-04-21] MEDS: Mupirocin Oint 22 GM Tube TOP SCH (09:08)
[2021-04-21] MEDS: Bacitracin Oint 1 GM U/D Packet TOP SCH (18:16)
[2021-04-21] MEDS: Melatonin 3 MG Tab PO SCH (20:10)
[2021-04-21] MEDS: Sertraline 50 MG Tab PO SCH (20:11)
[2021-04-21] MEDS: traZODone 100 MG Tab PO SCH (20:11)
[2021-04-21] MEDS: Acetaminophen 325 MG Tab PO PRN (20:11)
[2021-04-22] MEDS: Mupirocin Oint 22 GM Tube TOP SCH ×2 (07:54→20:33)
[2021-04-22] MEDS: amLODIPine 10 MG Tab PO SCH (07:56)
[2021-04-22] MEDS: Lisinopril 20 MG Tab PO SCH (08:00)
[2021-04-22] MEDS: Doxycycline 100 MG Cap PO SCH (09:14)
[2021-04-22] MEDS: Acetaminophen/oxyCODONE 325-5 MG Tab PO PRN ×2 (09:45→20:34)
[2021-04-22] MEDS: Sertraline 50 MG Tab PO SCH (20:34)
[2021-04-22] MEDS: traZODone 100 MG Tab PO SCH (20:34)
[2021-04-22] MEDS: Melatonin 3 MG Tab PO SCH (20:34)
[2021-04-23] MEDS: Lisinopril 20 MG Tab PO SCH (07:17)
[2021-04-23] MEDS: Mupirocin Oint 22 GM Tube TOP SCH ×2 (07:18→20:44)
[2021-04-23] MEDS: amLODIPine 10 MG Tab PO SCH (07:18)
[2021-04-23] MEDS: Melatonin 3 MG Tab PO SCH (20:43)
[2021-04-23] MEDS: Sertraline 50 MG Tab PO SCH (20:43)
[2021-04-23] MEDS: traZODone 100 MG Tab PO SCH (20:44)
[2021-04-23] MEDS: Acetaminophen/oxyCODONE 325-5 MG Tab PO PRN (20:44)
[2021-04-24] MEDS: amLODIPine 10 MG Tab PO SCH (07:40)
[2021-04-24] MEDS: Lisinopril 20 MG Tab PO SCH (07:40)
[2021-04-24] MEDS: Mupirocin Oint 22 GM Tube TOP SCH ×2 (07:41→21:59)
[2021-04-24] MEDS: Sertraline 50 MG Tab PO SCH (17:45)
[2021-04-24] MEDS: Melatonin 3 MG Tab PO SCH (17:45)
[2021-04-24] MEDS: traZODone 100 MG Tab PO SCH (19:45)
[2021-04-24] MEDS: Acetaminophen/oxyCODONE 325-5 MG Tab PO PRN (22:05)
[2021-04-25] MEDS: Mupirocin Oint 22 GM Tube TOP SCH ×2 (08:13→20:28)
[2021-04-25] MEDS: Lisinopril 20 MG Tab PO SCH (08:14)
[2021-04-25] MEDS: amLODIPine 10 MG Tab PO SCH (08:14)
[2021-04-25] MEDS: Acetaminophen/oxyCODONE 325-5 MG Tab PO PRN ×2 (08:50→20:30)
[2021-04-25] MEDS: Melatonin 3 MG Tab PO SCH (20:28)
[2021-04-25] MEDS: Sertraline 50 MG Tab PO SCH (20:29)
[2021-04-25] MEDS: traZODone 100 MG Tab PO SCH (20:29)
[2021-04-26] MEDS: Lisinopril 20 MG Tab PO SCH (08:00)
[2021-04-26] MEDS: amLODIPine 10 MG Tab PO SCH (08:00)
[2021-04-26] MEDS: Acetaminophen/oxyCODONE 325-5 MG Tab PO PRN ×2 (08:05→16:03)
[2021-04-26] MEDS: Mupirocin Oint 22 GM Tube TOP SCH (08:13)
[2021-04-26] MEDS: Melatonin 3 MG Tab PO SCH (19:38)
[2021-04-26] MEDS: traZODone 100 MG Tab PO SCH (19:38)
[2021-04-26] MEDS: Sertraline 50 MG Tab PO SCH (19:38)
[2021-04-27] MEDS: amLODIPine 10 MG Tab PO SCH (07:29)
[2021-04-27] MEDS: Lisinopril 20 MG Tab PO SCH (07:30)
[2021-04-27] MEDS: Melatonin 3 MG Tab PO SCH (19:37)
[2021-04-27] MEDS: traZODone 100 MG Tab PO SCH (19:37)
[2021-04-27] MEDS: Sertraline 50 MG Tab PO SCH (19:37)
[2021-04-28] MEDS: Lisinopril 20 MG Tab PO SCH (07:37)
[2021-04-28] MEDS: amLODIPine 10 MG Tab PO SCH (07:37)
[2021-04-28] MEDS: Acetaminophen 325 MG Tab PO PRN (07:42)
[2021-04-28] MEDS: traZODone 100 MG Tab PO SCH (20:47)
[2021-04-28] MEDS: Sertraline 50 MG Tab PO SCH (20:47)
[2021-04-28] MEDS: Melatonin 3 MG Tab PO SCH (20:47)
[2021-04-28] MEDS: Acetaminophen/oxyCODONE 325-5 MG Tab PO PRN (20:48)
[2021-04-29] MEDS: Acetaminophen/oxyCODONE 325-5 MG Tab PO PRN ×2 (07:12→19:31)
[2021-04-29] MEDS: amLODIPine 10 MG Tab PO SCH (07:12)
[2021-04-29] MEDS: Lisinopril 20 MG Tab PO SCH (07:12)
[2021-04-29] MEDS: Melatonin 3 MG Tab PO SCH (19:31)
[2021-04-29] MEDS: traZODone 100 MG Tab PO SCH (19:31)
[2021-04-29] MEDS: Sertraline 50 MG Tab PO SCH (19:33)
[2021-04-30] MEDS: Lisinopril 20 MG Tab PO SCH (07:35)
[2021-04-30] MEDS: amLODIPine 10 MG Tab PO SCH (07:39)
[2021-04-30] MEDS: Sertraline 50 MG Tab PO SCH (21:19)
[2021-04-30] MEDS: Acetaminophen/oxyCODONE 325-5 MG Tab PO PRN (21:19)
[2021-04-30] MEDS: traZODone 100 MG Tab PO SCH (21:20)
[2021-04-30] MEDS: Melatonin 3 MG Tab PO SCH (21:20)
[2021-05-01] MEDS: amLODIPine 10 MG Tab PO SCH (08:04)
[2021-05-01] MEDS: Lisinopril 20 MG Tab PO SCH (08:04)
[2021-05-01] MEDS: traZODone 100 MG Tab PO SCH (19:30)
[2021-05-01] MEDS: Melatonin 3 MG Tab PO SCH (19:30)
[2021-05-01] MEDS: Sertraline 50 MG Tab PO SCH (19:30)
[2021-05-01] MEDS: Acetaminophen/oxyCODONE 325-5 MG Tab PO PRN (19:31)
[2021-05-02] MEDS: Lisinopril 20 MG Tab PO SCH (08:05)
[2021-05-02] MEDS: amLODIPine 10 MG Tab PO SCH (08:05)
[2021-05-02] MEDS: Acetaminophen/oxyCODONE 325-5 MG Tab PO PRN (20:07)
[2021-05-02] MEDS: Sertraline 50 MG Tab PO SCH (20:08)
[2021-05-02] MEDS: traZODone 100 MG Tab PO SCH (20:08)
[2021-05-02] MEDS: Melatonin 3 MG Tab PO SCH (20:08)
[2021-05-03] MEDS: Lisinopril 20 MG Tab PO SCH (07:55)
[2021-05-03] MEDS: amLODIPine 10 MG Tab PO SCH (07:56)
[2021-05-03] MEDS: Acetaminophen 325 MG Tab PO PRN (20:04)
[2021-05-03] MEDS: traZODone 100 MG Tab PO SCH (20:04)
[2021-05-03] MEDS: Melatonin 3 MG Tab PO SCH (20:04)
[2021-05-03] MEDS: Sertraline 50 MG Tab PO SCH (20:04)
[2021-05-04] MEDS: amLODIPine 10 MG Tab PO SCH (07:27)
[2021-05-04] MEDS: Lisinopril 20 MG Tab PO SCH (07:32)
[2021-05-04] MEDS: Acetaminophen 325 MG Tab PO PRN (19:46)
[2021-05-04] MEDS: Sertraline 50 MG Tab PO SCH (19:47)
[2021-05-04] MEDS: Melatonin 3 MG Tab PO SCH (19:47)
[2021-05-04] MEDS: traZODone 100 MG Tab PO SCH (19:47)
[2021-05-05] MEDS: Mupirocin Oint 22 GM Tube TOP SCH ×2 (08:47→20:33)
[2021-05-05] MEDS: CHLORHEXIDINE 4% TOP SCH (08:48)
[2021-05-05] MEDS: [UNRECOGNIZED DRUG - OTHER] PO SCH ×2 (08:48→20:33)
[2021-05-05] MEDS: CHLORHEXIDINE 0.12% PO SCH ×2 (08:48→20:33)
[2021-05-05] MEDS: Lisinopril 20 MG Tab PO SCH (08:49)
[2021-05-05] MEDS: amLODIPine 10 MG Tab PO SCH (08:49)
[2021-05-05] MEDS: Melatonin 3 MG Tab PO SCH (19:17)
[2021-05-05] MEDS: Sertraline 50 MG Tab PO SCH (19:17)
[2021-05-05] MEDS: traZODone 100 MG Tab PO SCH (19:17)
[2021-05-06] MEDS: Lisinopril 20 MG Tab PO SCH (07:42)
[2021-05-06] MEDS: amLODIPine 10 MG Tab PO SCH (07:43)
[2021-05-06] MEDS: Mupirocin Oint 22 GM Tube TOP SCH ×2 (07:43→20:07)
[2021-05-06] MEDS: [UNRECOGNIZED DRUG - OTHER] PO SCH ×2 (07:44→20:07)
[2021-05-06] MEDS: CHLORHEXIDINE 0.12% PO SCH ×2 (07:44→20:07)
[2021-05-06] MEDS: CHLORHEXIDINE 4% TOP SCH (07:45)
[2021-05-06] MEDS: Melatonin 3 MG Tab PO SCH (20:07)
[2021-05-06] MEDS: Sertraline 50 MG Tab PO SCH (20:07)
[2021-05-06] MEDS: traZODone 100 MG Tab PO SCH (21:09)
[2021-05-06] MEDS: Acetaminophen/oxyCODONE 325-5 MG Tab PO PRN (21:16)
[2021-05-07] MEDS: Mupirocin Oint 22 GM Tube TOP SCH ×2 (07:34→20:16)
[2021-05-07] MEDS: CHLORHEXIDINE 4% TOP SCH (07:34)
[2021-05-07] MEDS: [UNRECOGNIZED DRUG - OTHER] PO SCH ×2 (07:34→20:16)
[2021-05-07] MEDS: amLODIPine 10 MG Tab PO SCH (07:34)
[2021-05-07] MEDS: CHLORHEXIDINE 0.12% PO SCH ×2 (07:34→20:16)
[2021-05-07] MEDS: Lisinopril 20 MG Tab PO SCH (07:35)
[2021-05-07] MEDS: traZODone 100 MG Tab PO SCH (20:06)
[2021-05-07] MEDS: Sertraline 50 MG Tab PO SCH (20:06)
[2021-05-07] MEDS: Melatonin 3 MG Tab PO SCH (20:06)
[2021-05-07] MEDS: Acetaminophen/oxyCODONE 325-5 MG Tab PO PRN (20:10)
[2021-05-08] MEDS: CHLORHEXIDINE 4% TOP SCH (07:38)
[2021-05-08] MEDS: [UNRECOGNIZED DRUG - OTHER] PO SCH ×2 (07:39→19:26)
[2021-05-08] MEDS: amLODIPine 10 MG Tab PO SCH (07:39)
[2021-05-08] MEDS: CHLORHEXIDINE 0.12% PO SCH ×2 (07:39→19:26)
[2021-05-08] MEDS: Lisinopril 20 MG Tab PO SCH (07:39)
[2021-05-08] MEDS: Mupirocin Oint 22 GM Tube TOP SCH ×2 (07:40→19:26)
[2021-05-08] MEDS: traZODone 100 MG Tab PO SCH (19:27)
[2021-05-08] MEDS: Sertraline 50 MG Tab PO SCH (19:27)
[2021-05-08] MEDS: Melatonin 3 MG Tab PO SCH (19:27)
[2021-05-09] MEDS: [UNRECOGNIZED DRUG - OTHER] PO SCH ×2 (07:02→19:51)
[2021-05-09] MEDS: CHLORHEXIDINE 0.12% PO SCH ×2 (07:02→19:51)
[2021-05-09] MEDS: Mupirocin Oint 22 GM Tube TOP SCH ×2 (07:02→19:51)
[2021-05-09] MEDS: CHLORHEXIDINE 4% TOP SCH (07:02)
[2021-05-09] MEDS: Lisinopril 20 MG Tab PO SCH (07:03)
[2021-05-09] MEDS: amLODIPine 10 MG Tab PO SCH (07:03)
[2021-05-09] MEDS: traZODone 100 MG Tab PO SCH (19:51)
[2021-05-09] MEDS: Sertraline 50 MG Tab PO SCH (19:51)
[2021-05-09] MEDS: Melatonin 3 MG Tab PO SCH (19:51)
[2021-05-10] MEDS: amLODIPine 10 MG Tab PO SCH (08:51)
[2021-05-10] MEDS: Lisinopril 20 MG Tab PO SCH (08:51)
[2021-05-10] MEDS: Melatonin 3 MG Tab PO SCH (20:15)
[2021-05-10] MEDS: traZODone 100 MG Tab PO SCH (20:15)
[2021-05-10] MEDS: Sertraline 50 MG Tab PO SCH (20:15)
[2021-05-11] MEDS: Lisinopril 20 MG Tab PO SCH (07:26)
[2021-05-11] MEDS: amLODIPine 10 MG Tab PO SCH (07:26)
[2021-05-11] MEDS: Sertraline 50 MG Tab PO SCH (20:06)
[2021-05-11] MEDS: traZODone 100 MG Tab PO SCH (20:06)
[2021-05-11] MEDS: Melatonin 3 MG Tab PO SCH (20:06)
[2021-05-12] MEDS: amLODIPine 10 MG Tab PO SCH (08:02)
[2021-05-12] MEDS: Lisinopril 20 MG Tab PO SCH (08:03)
[2021-05-12] MEDS: Sertraline 50 MG Tab PO SCH (19:57)
[2021-05-12] MEDS: Melatonin 3 MG Tab PO SCH (19:57)
[2021-05-12] MEDS: traZODone 100 MG Tab PO SCH (19:58)
[2021-05-13] MEDS: Lisinopril 20 MG Tab PO SCH (07:56)
[2021-05-13] MEDS: amLODIPine 10 MG Tab PO SCH (07:57)
[2021-05-13] MEDS: Sertraline 50 MG Tab PO SCH (20:25)
[2021-05-13] MEDS: traZODone 100 MG Tab PO SCH (20:25)
[2021-05-13] MEDS: Melatonin 3 MG Tab PO SCH (20:25)
[2021-05-14] MEDS: Acetaminophen 325 MG Tab PO PRN (07:15)
[2021-05-14] MEDS: amLODIPine 10 MG Tab PO SCH (07:22)
[2021-05-14] MEDS: Lisinopril 20 MG Tab PO SCH (07:22)
[2021-05-14] MEDS ORDERED: traZODone 100 MG Tab PO SCH (20:00)
[2021-05-14] MEDS: Melatonin 3 MG Tab PO SCH (20:21)
[2021-05-14] MEDS: Sertraline 50 MG Tab PO SCH (20:21)
[2021-05-14] MEDS: traZODone 50 MG Tab PO SCH (20:21)
[2021-05-15] MEDS: Lisinopril 20 MG Tab PO SCH (07:55)
[2021-05-15] MEDS: amLODIPine 10 MG Tab PO SCH (07:55)
[2021-05-15] MEDS: traZODone 50 MG Tab PO SCH (19:56)
[2021-05-15] MEDS: Sertraline 50 MG Tab PO SCH (19:56)
[2021-05-15] MEDS: Melatonin 3 MG Tab PO SCH (19:56)
[2021-05-16] MEDS: Lisinopril 20 MG Tab PO SCH (07:10)
[2021-05-16] MEDS: amLODIPine 10 MG Tab PO SCH (07:11)
[2021-05-16] MEDS: Sertraline 50 MG Tab PO SCH (20:23)
[2021-05-16] MEDS: Melatonin 3 MG Tab PO SCH (20:23)
[2021-05-16] MEDS: traZODone 50 MG Tab PO SCH (20:23)
[2021-05-17] MEDS: Lisinopril 20 MG Tab PO SCH (08:35)
[2021-05-17] MEDS: amLODIPine 10 MG Tab PO SCH (08:35)
[2021-05-17] MEDS: traZODone 50 MG Tab PO SCH (20:27)
[2021-05-17] MEDS: Sertraline 50 MG Tab PO SCH (20:27)
[2021-05-17] MEDS: Melatonin 3 MG Tab PO SCH (20:27)
[2021-05-18] MEDS: amLODIPine 10 MG Tab PO SCH (08:15)
[2021-05-18] MEDS: Lisinopril 20 MG Tab PO SCH (08:15)
[2021-05-18] MEDS: Melatonin 3 MG Tab PO SCH (19:47)
[2021-05-18] MEDS: traZODone 50 MG Tab PO SCH (19:47)
[2021-05-18] MEDS: Sertraline 50 MG Tab PO SCH (19:47)
[2021-05-19] MEDS: amLODIPine 10 MG Tab PO SCH (08:26)
[2021-05-19] MEDS: Lisinopril 20 MG Tab PO SCH (08:30)
[2021-05-19] MEDS: Melatonin 3 MG Tab PO SCH (20:30)
[2021-05-19] MEDS: Sertraline 50 MG Tab PO SCH (20:30)
[2021-05-19] MEDS: traZODone 50 MG Tab PO SCH (20:30)
[2021-05-20] MEDS: Lisinopril 20 MG Tab PO SCH (08:31)
[2021-05-20] MEDS: amLODIPine 10 MG Tab PO SCH (08:31)
== END 2021-05-20 12:25 | DRG 950 ==
LOC: LB.MS 12:11
PROVIDERS: ADMIT Physician Assistant; ATTEND Physician Assistant
DX: T33.522D Superficial frostbite of left hand, subsequent encounter (principal); T33.521D Superficial frostbite of right hand, subsequent encounter; Z22.322 Carrier or suspected carrier of Methicillin resistant Staphylococcus aureus; Z89.022 Acquired absence of left finger(s); Z89.021 Acquired absence of right finger(s); T33 Superficial frostbite; I10 Essential (primary) hypertension; Z87.820 Personal history of traumatic brain injury; Z86.16 Personal history of COVID-19; Z79.899 Other long term (current) drug therapy
CPT/HCPCS: 87070; 87077; 87186; 97110-GO; 97165-GO; A9270-GY

== ENCOUNTER 2023-11-19 07:23 | Emergency (ER) | payer MEDICARE ==
[2023-11-19] MEDS ORDERED: Sodium Chloride 0.9% 10 ML Syringe FLUSH PRN (07:52)
[2023-11-19 08:13] LABS: BASOPHILS ABSOLUTE AUTO 0.07 K/uL (0.02-0.10); BASOPHILS PERCENT AUTO 0.6 % (0.0-0.5); EOSINOPHILS ABSOLUTE AUTO 0.35 K/uL (0.04-0.40); EOSINOPHILS PERCENT AUTO 2.9 % (1.0-5.0); HEMATOCRIT 42.7 % (40.0-54.0); HEMOGLOBIN 13.8 g/dL (13.0-18.0); LYMPHOCYTES ABSOLUTE AUTO 4.67 K/uL (1.50-4.00); LYMPHOCYTES PERCENT AUTO 38.9 % (20.0-40.0); MEAN CORPUSCULAR HEMOGLOBIN 27.5 pg (27.0-32.0); MEAN CORPUSCULAR HGB CONC 32.3 g/dL (31.0-35.0); MEAN CORPUSCULAR VOLUME 85 fL (76-96); MEAN PLATELET VOLUME 10.3 fL (6.0-10.0); MONOCYTES ABSOLUTE AUTO 1.42 K/uL (0.20-0.80); MONOCYTES PERCENT AUTO 11.8 % (3.0-10.0); NEUTROPHILS ABSOLUTE AUTO 5.51 K/uL (2.00-7.50); NEUTROPHILS PERCENT AUTO 45.8 % (45.0-70.0); PLATELET COUNT,PLT 526 K/uL (150-400); RED BLOOD CELL COUNT 5.02 M/uL (4.50-6.50); RED CELL DISTRIBUTION WIDTH 16.8 % (11.0-16.0)
[2023-11-19] MEDS: Alteplase 81 MG in Premix Bag 1 BAG IV ONE (08:42)
[2023-11-19] MEDS ORDERED: SODIUM CHLORIDE 0.9% IV ONE (08:51)
[2023-11-19] MEDS ORDERED: NICARDIPINE HCL IV ONE (08:51)
[2023-11-19] MEDS: Labetalol 100 MG/20 ML MDV IVPUSH ONE (08:55)
[2023-11-19 08:59] LABS: BILIRUBIN,URINE NEGATIVE (NEGATIVE); COLOR,URINE YELLOW; GLUCOSE,URINE NEGATIVE (NEGATIVE); KETONES,URINE NEGATIVE (NEGATIVE); OCCULT BLOOD,URINE TRACE-LYSED (NEGATIVE); PROTEIN,URINE 30 mg/dL (NEGATIVE)
[2023-11-19 09:00] LABS: LEUKOCYTE ESTERASE,URINE SMALL (NEGATIVE); NITRITE,URINE POSITIVE (NEGATIVE); SQUAMOUS EPITHELIAL CELLS,UR FEW /HPF; UROBILINOGEN,URINE 0.2 E.U./dL (0.2-1.0); WBC,URINE 50-75 /HPF
[2023-11-19 09:00] LABS: INR 0.9 (1.0-3.5); PTT,PARTIAL THROMBOPLSTIN TIME 25.4 SECONDS (24.4-33.2)
[2023-11-19 09:02] LABS: PROTHROMBIN TIME 9.9 sec (9.0-11.5)
[2023-11-19 09:04] LABS: A/G RATIO 0.9 (0.8-2.0); ALANINE AMINOTRANSFERASE,ALT 19 U/L (12-78); ALBUMIN 3.4 g/dL (3.4-5.0); ALKALINE PHOSPHATASE 128 U/L (46-116); ANION GAP 12.3 mmol/L (5.0-15.0); ASPARTATE AMNIOTRANSFERASE,AST 18 U/L (15-37); BILIRUBIN TOTAL 0.5 mg/dL (0.0-1.0); BLOOD UREA NITROGEN,BUN 14 mg/dL (8-26); BUN/CREATININE RATIO 9.8 (6-25); CARBON DIOXIDE,CO2 26.4 mmol/L (21.0-32.0); CHLORIDE,CL 102 mmol/L (98-107); CREATININE 1.43 mg/dL (0.70-1.30); ESTIMATED GFR 55 mL/min (>60); GLUCOSE RANDOM 93 mg/dL (74-100); POTASSIUM,K 4.7 mmol/L (3.5-5.1); PROTEIN TOTAL,TP 7.4 g/dL (6.4-8.2); SODIUM,NA 136 mmol/L (136-145)
[2023-11-19] MEDS: Tenecteplase 50 MG Kit IVPUSH ONE (09:08)
[2023-11-21 09:28] LABS: APPEARANCE,URINE CLOUDY (CLEAR)
== END 2023-11-19 10:00 ==
LOC: LB.ED 07:23
DX: I63.9 Cerebral infarction, unspecified (principal); I10 Essential (primary) hypertension; Z86.16 Personal history of COVID-19; Z79.899 Other long term (current) drug therapy
CPT/HCPCS: 36415; 37195; 51702; 70450; 80053; 81001; 82947; 84484; 85025; 85610; 85730; 93005; 96374; 99285-25; J3101

== ENCOUNTER 2023-11-23 10:21 | Inpatient (IN) | payer MEDICARE ==
[2023-11-23] MEDS ORDERED: LISINOPRIL 40 MG PO SCH (20:00)
[2023-11-23] MEDS: Amoxicillin/Clavulanate K 875-125 MG Tab PO SCH (20:27)
[2023-11-23] MEDS: Sertraline 25 MG Tab PO SCH (20:27)
[2023-11-23] MEDS: Melatonin 3 MG Tab PO SCH (20:27)
[2023-11-23] MEDS: amLODIPine 10 MG Tab PO SCH (20:27)
[2023-11-23] MEDS: Sertraline 50 MG Tab PO SCH (20:28)
[2023-11-23] MEDS: Tuberculin, PPD 5 Units/0.1 ML 1 ML MDV IDERM ONE (20:53)
[2023-11-23] MEDS: Lisinopril 20 MG Tab PO ONE (20:53)
[2023-11-23] MEDS: Lisinopril 20 MG Tab ONE (21:01)
[2023-11-23] MEDS: Carboxymethylcellulose Sodium 0.5% Ophth Soln 15 ML Bottle EYELF SCH (22:25)
[2023-11-24] MEDS: Lisinopril 20 MG Tab PO SCH (08:11)
[2023-11-24] MEDS: Aspirin 81 MG Tab.Chew PO SCH (08:11)
[2023-11-24] MEDS: atorvaSTATin 40 MG Tab PO SCH (08:12)
[2023-11-24] MEDS: Omeprazole 20 MG Cap.CR PO SCH (08:12)
[2023-11-25] MEDS: FLU (Fluarix Triv) TS24-25(6MOS UP)/PF 45 MCG/0.5 ML Syringe IM ONE ×2 (12:15→16:05)
[2023-12-08] MEDS: Tuberculin, PPD 5 Units/0.1 ML 1 ML MDV IDERM ONE (14:07)
[2023-12-08 16:12] LABS: APPEARANCE,URINE CLEAR (CLEAR); COLOR,URINE YELLOW
[2023-12-08 16:13] LABS: BILIRUBIN,URINE NEGATIVE (NEGATIVE); GLUCOSE,URINE NEGATIVE (NEGATIVE); KETONES,URINE NEGATIVE (NEGATIVE); LEUKOCYTE ESTERASE,URINE TRACE (NEGATIVE); NITRITE,URINE NEGATIVE (NEGATIVE); OCCULT BLOOD,URINE LARGE (NEGATIVE); PH,URINE 5.5 (5.0-8.0); PROTEIN,URINE 100 mg/dL (NEGATIVE); UROBILINOGEN,URINE 0.2 E.U./dL (0.2-1.0)
[2023-12-08 16:14] LABS: MUCUS,URINE MANY /HPF; RBC,URINE 20-30 /HPF; SQUAMOUS EPITHELIAL CELLS,UR FEW /HPF
[2023-12-11] MEDS: Menthol/Zinc Oxide Ointment 113 GM Tube TOP PRN (08:21)
== END 2023-12-14 11:30 | DRG 57 ==
LOC: LB.MS 19:35
PROVIDERS: ADMIT Family Medicine; ATTEND Family Medicine
DX: I69.354 Hemiplegia and hemiparesis following cerebral infarction affecting left non-dominant side (principal); H53.462 Homonymous bilateral field defects, left side; I10 Essential (primary) hypertension; F32.A Depression, unspecified; F41.9 Anxiety disorder, unspecified; Z79.82 Long term (current) use of aspirin; Z79.899 Other long term (current) drug therapy; Z89.029 Acquired absence of unspecified finger(s)
CPT/HCPCS: 81001; 86580; 87086; 90656; 92507-GN; 92523-GN; 92526-GN; 92610-GN; 97110-GP; 97116-GP; 97162-GP; 97166-GO; 97530-GO; 97530-GP; 97535-GO; 99305; 99307; 99308; 99316; A9270-GY; G0008; U0002

== ENCOUNTER 2024-03-08 08:37 | Day surgery (SDC) | payer MEDICARE ==
[~2024-03-08 08:37] MED LIST: Morphine 2 MG/ML SYRINGE IVPUSH PRN; Ondansetron 4 MG/2 ML SDV IVPUSH PRN; ceFAZolin 2 GM in Sodium Chloride 0.9% 100 ML IV SCH
[2024-03-08] MEDS: Lactated Ringers 1,000 ML IV SCH ×2 (09:18→13:26)
[2024-03-08] MEDS: ceFAZolin 2 GM in Sodium Chloride 0.9% 100 ML IV ONE (09:33)
[2024-03-08] MEDS ORDERED: Midazolam 1 MG/ML 2 ML SDV ONE (13:10)
[2024-03-08] MEDS ORDERED: Propofol 200 MG/20 ML SDV ONE (13:10)
[2024-03-08] MEDS ORDERED: fentaNYL 100 MCG/2 ML SDV ONE (13:10)
[2024-03-08] MEDS: Acetaminophen/HYDROcodone 325-5 MG Tab PO PRN (14:44)
== END 2024-03-08 15:16 ==
LOC: LB.SDS 08:37
PROVIDERS: ATTEND Surgery
DX: K40.30 Unilateral inguinal hernia, with obstruction, without gangrene, not specified as recurrent (principal); K21.9 Gastro-esophageal reflux disease without esophagitis; F32.A Depression, unspecified; E78.5 Hyperlipidemia, unspecified; I10 Essential (primary) hypertension; Z79.899 Other long term (current) drug therapy
CPT/HCPCS: A9270-GY; C1781; J0690; J2250; J2704; J3010; J7120

== ENCOUNTER 2024-11-24 18:27 | Emergency (ER) | payer MEDICARE ==
[2024-11-24] MEDS: Ketorolac 30 MG/ML SDV IM ONE (19:15)
[2024-11-24] MEDS ORDERED: Sodium Chloride 0.9% 10 ML Syringe FLUSH PRN (19:26)
[2024-11-24 20:41] LABS: BLOOD UREA NITROGEN,BUN 12.0 mg/dL (8-26); CARBON DIOXIDE,CO2 26.3 mmol/L (21.0-32.0); CHLORIDE,CL 104.0 mmol/L (98-107); CREATININE 1.43 mg/dL (0.70-1.30); EST CRCL DRUG DOSING (CG) 55.58 mL/min; ESTIMATED GFR 55.0 mL/min (>60); GLUCOSE RANDOM 140.0 mg/dL (74-100); POTASSIUM,K 4.1 mmol/L (3.5-5.1); SODIUM,NA 139.0 mmol/L (136-145)
[2024-11-24 20:45] LABS: MEAN PLATELET VOLUME 9.8 fL (6.0-10.0); PLATELET COUNT,PLT 416 K/uL (150-400); RED BLOOD CELL COUNT 4.72 M/uL (4.50-6.50); RED CELL DISTRIBUTION WIDTH 15.9 % (11.0-16.0)
[2024-11-24 20:49] LABS: WHITE BLOOD CELL COUNT,WBC 20.5 K/uL (4.0-11.0)
[2024-11-24 21:17] LABS: LYMPHOCYTES PERCENT MAN 10.0 % (20.0-40.0); MONOCYTES PERCENT MAN 2.0 % (3.0-10.0); SEG NEUTROPHILS PERCENT MAN 88.0 % (45.0-70.0)
[2024-11-24 21:18] LABS: APPEARANCE,URINE CLEAR (CLEAR); GLUCOSE,URINE NEGATIVE (NEGATIVE); OCCULT BLOOD,URINE NEGATIVE (NEGATIVE)
[2024-11-24 21:19] LABS: PLATELET COUNT ESTIMATE ADEQUATE
== END 2024-11-24 21:40 ==
LOC: LB.ED 18:27
DX: S72.142A Displaced intertrochanteric fracture of left femur, initial encounter for closed fracture (principal); S72.002A Fracture of unspecified part of neck of left femur, initial encounter for closed fracture; W01.0XXA Fall on same level from slipping, tripping and stumbling without subsequent striking against object, initial encounter
CPT/HCPCS: 36415; 73502-LT; 73562-LT; 80048; 81003; 83605; 85025; 87040; 93005; 96372; 96374; 99284-25; 99285; A0425; A0428; J0696; J1885; J2270